=== PATIENT | female | born 1980 ===

== ENCOUNTER 2024-01-21 15:19 | Outpatient (REF) | payer OTHER, SELFPAY | END 2024-01-21 15:20 | disposition home or self-care (01) | LOC: HO.SH 15:19 | PROVIDERS: Visit Provider Internal Medicine | DX: Z01.118 Encounter for examination of ears and hearing with other abnormal findings (principal); H90.72 Mixed conductive and sensorineural hearing loss, unilateral, left ear, with unrestricted hearing on the contralateral side | CPT/HCPCS: 92557; 92567 ==